=== PATIENT | female | born 1940 | race Caucasian/White ===

== ENCOUNTER → 2016-05-15 | Outpatient (CLI) | payer OTHER, MEDICAID ==
[~2016-05-15] MED LIST: B-12500 MCG PO; CARDIZEM CD240 MG PO; CIPROFLOXACIN500 MG PO; CRESTOR20 MG PO; FLOMAX0.4 MG PO; FUROSEMIDE40 MG PO; GLYBURIDE5 MG PO; HYDROCODONE BIT1 T11 PO; JANUVIA50 MG PO; LANTUS100 U/ML SC; LISINOPRIL10 MG PO; LORAZEPAM0.5 MG PO; MAPAP325 MG PO; METFORMIN HYD1000 MG PO; METOPROLOL50 MG PO; MIRALAX17 GM/DOSE PO; PERCOCET 325 MG1 TA2 PO; PROTONIX TR40 MG PO; VITAMIN D2000 IU PO; VITAMIN D31000 IU PO; ZESTRIL,PRINIVI10 MG PO; Zofran4 MG PO
[2016-05-15 11:01] LABS: BASO # 0.1 10*3/uL (0.0-0.1); EOS # 0.3 10*3/uL (0.0-0.4); EOS % 3.4 % (1.0-4.0); HEMATOCRIT 38.8 % (37.0-47.0); HEMOGLOBIN 12.7 g/dl (12.0-16.0); LYMPH # 2.6 10*3/uL (1.3-4.4); LYMPH % 33.9 % (27.0-41.0); MEAN CELL VOLUME 91.5 fl (81.0-99.0); MEAN CORPUSCULAR HGB CONC 32.7 g/dl (33.0-37.0); MEAN PLATELET VOLUME 10.3 fl (9.6-12.3); MONO # 0.6 10*3/uL (0.1-1.0); MONO % 7.4 % (3.0-9.0); NEUT # 4.2 10*3/uL (2.3-7.9); PLATELET COUNT AUTOMATED 260 10*3/uL (130-400); RED BLOOD COUNT 4.24 10*6/uL (4.10-5.10); RED CELL DISTRI WIDTH 13.1 % (0-14.5); WHITE BLOOD COUNT 7.7 10*3/uL (4.8-10.8)
[2016-05-15 11:09] LABS: ALBUMIN 3.3 gm/dl (3.1-4.5); PHOSPHOROUS 2.7 mg/dL (2.5-4.9); POTASSIUM 3.6 mmol/L (3.5-5.1)
== END | disposition home or self-care (01) ==
LOC: LAB 10:07
PROVIDERS: Internal Medicine
DX: E11.9 Type 2 diabetes mellitus without complications (principal)

== ENCOUNTER 2016-09-06 23:40 | Emergency (ER) | payer OTHER, MEDICAID ==
[~2016-09-06] VITALS: Ht 167.6 cm; Wt 110.2 kg
[2016-09-06] MEDS ORDERED: METOPROLOL TART75 MG PO (23:52)
[2016-09-06] MEDS ORDERED: VICTOZA6 MG/ML SC (23:55)
[2016-09-06] MEDS ORDERED: LEVEMIR10 ML SC (23:56)
[2016-09-06] MEDS ORDERED: NOVOLOG FLEX100 U/ML SC (23:57)
[2016-09-06] MEDS ORDERED: MAGNESIUM OXID400 MG PO (23:58)
[2016-09-07 00:10] VITALS: BP 190/72
[2016-09-07] MEDS ORDERED: NORVASC10 MG PO (00:32)
== END 2016-09-07 03:01 | disposition home or self-care (01) ==
LOC: ED 23:40
DX: I15.9 Secondary hypertension, unspecified (principal); E11.9 Type 2 diabetes mellitus without complications; F41.9 Anxiety disorder, unspecified; I99.8 Other disorder of circulatory system; Z79.899 Other long term (current) drug therapy; Z79.4 Long term (current) use of insulin; Z88.1 Allergy status to other antibiotic agents; Z85.038 Personal history of other malignant neoplasm of large intestine

== ENCOUNTER → 2016-10-23 | Outpatient (CLI) | payer OTHER, MEDICAID ==
[~2016-10-23] MED LIST changes: +LEVEMIR10 ML SC; +MAGNESIUM OXID400 MG PO; +METOPROLOL TART75 MG PO; +NORVASC10 MG PO; +NOVOLOG FLEX100 U/ML SC; +VICTOZA6 MG/ML SC
== END | disposition home or self-care (01) ==
LOC: US 01:56
DX: N28.1 Cyst of kidney, acquired (principal); I10 Essential (primary) hypertension; N28.89 Other specified disorders of kidney and ureter

== ENCOUNTER 2016-12-08 13:54 | Inpatient (IN) | payer OTHER, MEDICAID ==
[~2016-12-08] VITALS: Ht 167.6 cm; Wt 106.6 kg
[~2016-12-08 13:54] MED LIST changes: +LOPRESSOR100 M1 PO; -METOPROLOL TART75 MG PO
[2016-12-08 13:56] VITALS: BP 164/74
[2016-12-08 14:37] LABS: BASO # 0.1 10*3/uL (0.0-0.1); BASO % 0.7 % (0.0-1.0); EOS # 0.2 10*3/uL (0.0-0.4); EOS % 3.1 % (1.0-4.0); HEMATOCRIT 38.2 % (37.0-47.0); HEMOGLOBIN 12.6 g/dl (12.0-16.0); IG # 0.1 10*3/uL (0.0-0.1); LYMPH # 2.3 10*3/uL (1.3-4.4); LYMPH % 32.3 % (27.0-41.0); MEAN CELL VOLUME 91.6 fl (81.0-99.0); MEAN CORPUSCULAR HGB 30.2 pg (27.0-31.0); MEAN PLATELET VOLUME 10.4 fl (9.6-12.3); MONO # 0.8 10*3/uL (0.1-1.0); MONO % 11.4 % (3.0-9.0); NEUT # 3.6 10*3/uL (2.3-7.9); NEUT % 51.8 % (47.0-73.0); PLATELET COUNT AUTOMATED 253 10*3/uL (130-400); RED BLOOD COUNT 4.17 10*6/uL (4.10-5.10); RED CELL DISTRI WIDTH 13.9 % (0-14.5)
[2016-12-08 14:47] LABS: INTERNATIONAL NORM RATIO 1.1 (2.0-3.5); PROTHROMBIN TIME 11.2 SECONDS (9.0-12.4)
[2016-12-08 14:55] LABS: ALBUMIN 3.2 gm/dl (3.1-4.5); BUN 25 mg/dl (7-24); CARBON DIOXIDE 22 mmol/L (21-32); CHLORIDE 107 mmol/L (98-107); GLUCOSE 179 mg/dL (65-99); MAGNESIUM 1.8 mg/dL (1.5-2.1); POTASSIUM 3.4 mmol/L (3.5-5.1); SODIUM 139 mmol/L (136-145)
[2016-12-08 14:59] LABS: ALKALINE PHOSPHATASE 108 U/L (45-117); BILIRUBIN, TOTAL 0.6 mg/dl (0.2-1.0); C-REACTIVE PROTEIN 1.72 MG/DL (0-0.3); CKMB 0.5 ng/ml (0.5-3.6); CPK 81 U/L (26-192); EST GLOM FILT AFRICAN AMERICAN 35 ml/min; SGOT/AST 13 IU/L (3-35); SGPT/ALT 14 U/L (12-78); TROPONIN I < 0.015 ng/ml (<0.045)
[2016-12-08 15:26] LABS: BILIRUBIN NEGATIVE (NEGATIVE); BLOOD TRACE-LYSED (NEGATIVE); CLARITY CLEAR (CLEAR); COLOR YELLOW (YELLOW); GLUCOSE NEGATIVE (NEGATIVE); KETONE TRACE (NEGATIVE); LEUKO ESTERASE NEGATIVE (NEGATIVE); NITRITE NEGATIVE (NEGATIVE); PH 5.5 (5.0-9.0); PROTEIN NEGATIVE (NEGATIVE); SPECIFIC GRAVITY 1.015 (1.005-1.030); UROBILINOGEN 0.2 E.U./dl (0.2-1.0)
[2016-12-08 15:31] LABS: BACTERIA TRACE
[2016-12-08 15:32] LABS: EPITHELIAL CELLS 0-2; URINE REFLEX COMMENT NO (NO); WBC 0-2 wbc/hpf (0-5)
[2016-12-08 16:02] VITALS: BP 156/68
[2016-12-08 17:05] VITALS: BP 134/56
[2016-12-08 17:30] VITALS: BP 146/62
[2016-12-08] MEDS ORDERED: LOSARTAN POTAS100 M1 PO (17:57)
[2016-12-08] MEDS ORDERED: Hydralazine Hyd25 MG PO (17:58)
[2016-12-08] MEDS ORDERED: VITAMIN D31000 IU PO (18:00)
[2016-12-08 20:00] VITALS: BP 136/56
[2016-12-09] VITALS (7 sets, daily range): BP systolic 123–152; BP diastolic 53–70
[2016-12-09 08:37] LABS: POTASSIUM 3.5 mmol/L (3.5-5.1)
[2016-12-09 08:44] LABS: HEMOGLOBIN A1c 7.7 % (4.8-5.6)
[2016-12-09 08:47] LABS: THYROID STIM HORMONE (HS) 0.72 uIU/ml (0.358-4.75)
[2016-12-09 09:42] LABS: FOLIC ACID 16.16 ng/mL (>5.38)
[2016-12-09] MEDS ORDERED: VITAMIN D50000 UNIT PO (15:32)
[2016-12-10] VITALS: BP 123/45
[2016-12-10 06:46] LABS: BASO # 0.1 10*3/uL (0.0-0.1); BASO % 0.8 % (0.0-1.0); EOS # 0.3 10*3/uL (0.0-0.4); EOS % 3.4 % (1.0-4.0); HEMATOCRIT 36.2 % (37.0-47.0); HEMOGLOBIN 11.8 g/dl (12.0-16.0); IG # 0.2 10*3/uL (0.0-0.1); LYMPH # 3.4 10*3/uL (1.3-4.4); LYMPH % 43.2 % (27.0-41.0); MEAN CELL VOLUME 92.8 fl (81.0-99.0); MEAN CORPUSCULAR HGB 30.3 pg (27.0-31.0); MEAN CORPUSCULAR HGB CONC 32.6 g/dl (33.0-37.0); MEAN PLATELET VOLUME 10.2 fl (9.6-12.3); MONO # 0.8 10*3/uL (0.1-1.0); MONO % 9.6 % (3.0-9.0); NEUT # 3.3 10*3/uL (2.3-7.9); NEUT % 41.1 % (47.0-73.0); PLATELET COUNT AUTOMATED 277 10*3/uL (130-400); WHITE BLOOD COUNT 7.9 10*3/uL (4.8-10.8)
[2016-12-10 07:09] LABS: POTASSIUM 3.5 mmol/L (3.5-5.1)
[2016-12-10 08:00] VITALS: BP 126/52
[2016-12-10 12:00] VITALS: BP 124/49
[2016-12-10 16:00] VITALS: BP 129/52
== END 2016-12-10 18:33 | disposition home or self-care (01) | DRG 312 ==
LOC: ED 13:54 → 5E 16:43 → EDHOLD 16:43 → 5E 16:52
PROVIDERS: Emergency Medicine; Internal Medicine
DX: R55 Syncope and collapse (principal); I13.0 Hypertensive heart and chronic kidney disease with heart failure and stage 1 through stage 4 chronic kidney disease, or unspecified chronic kidney disease; I50.32 Chronic diastolic (congestive) heart failure; E11.22 Type 2 diabetes mellitus with diabetic chronic kidney disease; E44.1 Mild protein-calorie malnutrition; F41.9 Anxiety disorder, unspecified; N18.3 Chronic kidney disease, stage 3 (moderate); T88.7XXA Unspecified adverse effect of drug or medicament, initial encounter; R42 Dizziness and giddiness; E11.42 Type 2 diabetes mellitus with diabetic polyneuropathy; E87.6 Hypokalemia; D72.821 Monocytosis (symptomatic); E11.65 Type 2 diabetes mellitus with hyperglycemia; E67.8 Other specified hyperalimentation; E87.8 Other disorders of electrolyte and fluid balance, not elsewhere classified; Z68.37 Body mass index [BMI] 37.0-37.9, adult; Z86.718 Personal history of other venous thrombosis and embolism; Z85.038 Personal history of other malignant neoplasm of large intestine; Z87.442 Personal history of urinary calculi; Z85.828 Personal history of other malignant neoplasm of skin; Z98.51 Tubal ligation status; Z90.710 Acquired absence of both cervix and uterus; Z90.49 Acquired absence of other specified parts of digestive tract; Z88.8 Allergy status to other drugs, medicaments and biological substances; Z82.49 Family history of ischemic heart disease and other diseases of the circulatory system; Z81.8 Family history of other mental and behavioral disorders; Z80.8 Family history of malignant neoplasm of other organs or systems; Z80.6 Family history of leukemia; Z80.3 Family history of malignant neoplasm of breast; Z79.4 Long term (current) use of insulin; Z79.899 Other long term (current) drug therapy

== ENCOUNTER → 2016-12-27 | Outpatient (CLI) | payer OTHER, MEDICAID ==
[~2016-12-27] MED LIST changes: +Hydralazine Hyd25 MG PO; +LOSARTAN POTAS100 M1 PO; +VITAMIN D50000 UNIT PO
== END | disposition home or self-care (01) ==
LOC: MAMMO 02:59
DX: Z12.31 Encounter for screening mammogram for malignant neoplasm of breast (principal)

== ENCOUNTER → 2017-05-04 | Outpatient (CLI) | payer OTHER, MEDICAID ==
[2017-05-04 11:54] LABS: BASO # 0.1 10*3/uL (0.0-0.1); BASO % 1.4 % (0.0-1.0); EOS # 0.2 10*3/uL (0.0-0.4); HEMOGLOBIN 12.6 g/dl (12.0-16.0); LYMPH # 1.5 10*3/uL (1.3-4.4); LYMPH % 24.5 % (27.0-41.0); MEAN CELL VOLUME 89.6 fl (81.0-99.0); MEAN CORPUSCULAR HGB 29.7 pg (27.0-31.0); MEAN CORPUSCULAR HGB CONC 33.2 g/dl (33.0-37.0); MEAN PLATELET VOLUME 10.1 fl (9.6-12.3); MONO # 0.5 10*3/uL (0.1-1.0); MONO % 7.8 % (3.0-9.0); NEUT # 3.7 10*3/uL (2.3-7.9); PLATELET COUNT AUTOMATED 261 10*3/uL (130-400); RED BLOOD COUNT 4.24 10*6/uL (4.10-5.10); WHITE BLOOD COUNT 5.9 10*3/uL (4.8-10.8)
[2017-05-04 11:55] LABS: BILIRUBIN NEGATIVE (NEGATIVE); BLOOD NEGATIVE (NEGATIVE); CLARITY CLEAR (CLEAR); COLOR YELLOW (YELLOW); GLUCOSE NEGATIVE (NEGATIVE); KETONE NEGATIVE (NEGATIVE); LEUKO ESTERASE NEGATIVE (NEGATIVE); NITRITE NEGATIVE (NEGATIVE); SPECIFIC GRAVITY 1.015 (1.005-1.030); UROBILINOGEN 0.2 E.U./dl (0.2-1.0)
[2017-05-04 12:01] LABS: BACTERIA TRACE; EPITHELIAL CELLS 16-20
[2017-05-04 12:07] LABS: ALBUMIN 3.1 gm/dl (3.1-4.5); CREATININE 1.59 mg/dL (0.55-1.02); POTASSIUM 3.4 mmol/L (3.5-5.1)
[2017-05-04 12:08] LABS: PHOSPHOROUS 3.1 mg/dL (2.5-4.9)
== END | disposition home or self-care (01) ==
LOC: LAB 10:54
PROVIDERS: Internal Medicine Nephrology
DX: N18.3 Chronic kidney disease, stage 3 (moderate) (principal)

== ENCOUNTER → 2017-08-28 | Outpatient (CLI) | payer OTHER, MEDICAID ==
[2017-08-28 12:27] LABS: BILIRUBIN NEGATIVE (NEGATIVE); BLOOD NEGATIVE (NEGATIVE); CLARITY CLEAR (CLEAR); COLOR STRAW (YELLOW); GLUCOSE NEGATIVE (NEGATIVE); KETONE NEGATIVE (NEGATIVE); LEUKO ESTERASE NEGATIVE (NEGATIVE); NITRITE NEGATIVE (NEGATIVE); UROBILINOGEN 0.2 E.U./dl (0.2-1.0)
[2017-08-28 12:34] LABS: URINE CREATININE RANDOM 57.6 mg/dL
[2017-08-28 12:36] LABS: BASO # 0.1 10*3/uL (0.0-0.1); BASO % 1.1 % (0.0-1.0); EOS # 0.2 10*3/uL (0.0-0.4); EOS % 3.1 % (1.0-4.0); HEMATOCRIT 39.7 % (37.0-47.0); HEMOGLOBIN 13.1 g/dl (12.0-16.0); LYMPH # 1.8 10*3/uL (1.3-4.4); LYMPH % 24.5 % (27.0-41.0); MEAN CELL VOLUME 90.4 fl (81.0-99.0); MEAN CORPUSCULAR HGB 29.8 pg (27.0-31.0); MEAN PLATELET VOLUME 10.5 fl (9.6-12.3); MONO # 0.6 10*3/uL (0.1-1.0); MONO % 7.5 % (3.0-9.0); NEUT # 4.7 10*3/uL (2.3-7.9); NEUT % 63.3 % (47.0-73.0); PLATELET COUNT AUTOMATED 277 10*3/uL (130-400); RED BLOOD COUNT 4.39 10*6/uL (4.10-5.10); RED CELL DISTRI WIDTH 13.1 % (0-14.5); WHITE BLOOD COUNT 7.5 10*3/uL (4.8-10.8)
[2017-08-28 12:59] LABS: ALBUMIN 3.3 gm/dl (3.1-4.5); CREATININE 1.7 mg/dL (0.55-1.02); PHOSPHOROUS 3.5 mg/dL (2.5-4.9); POTASSIUM 4.1 mmol/L (3.5-5.1)
[2017-08-28 13:05] LABS: BACTERIA TRACE
[2017-08-28 13:21] LABS: PTH INTACT 107.6 pg/mL (14.0-72.0); VITAMIN D, 25-HYDROXY 43.2 ng/mL (30-100)
== END | disposition home or self-care (01) ==
LOC: LAB 11:52
PROVIDERS: Internal Medicine Nephrology
DX: N18.3 Chronic kidney disease, stage 3 (moderate) (principal)

== ENCOUNTER 2018-04-04 01:01 | Inpatient (IN) | payer OTHER, MEDICAID ==
[~2018-04-04] VITALS: Ht 167.6 cm; Wt 122.3 kg
[2018-04-04] VITALS (8 sets, daily range): BP systolic 128–160; BP diastolic 45–72
--- NOTE | ~2018-04-04 | EKG ---
[place], [place] ELECTROCARDIOGRAM REPORT NAME: JULIANNE MCA UNIT #: [id number] ROOM: 510 DOCTOR: EPIPHANY DRAFT REPORT BIRTHDATE: [birth year] [facility] Test Date: 2018-04-04 Test Time: 01:18:15 Pat Name: JULIANNE MAC Department: 5E Room: 510 Gender: F Credit Control Assistant: Shin Whitehead : 1940 Requested By: MAYELIN PADILLA Order Number: [id number] Reading MD: Cory Torres MD Measurements Intervals [place] Rate: 75 P: -10 CO: 193 QRS: -31 QRSD: 103 T: 87 QT: 392 QTc: 438 Interpretive Statements Sinus rhythm Left axis deviation Low voltage, precordial leads Abnormal R-wave progression, late transition Baseline wander in lead(s) V1,V2 Electronically Signed On 04-07-2018 8:30:22 PST by Cory Torres MD CM:EKGRPT:ELECTROCARDIOGRAM REPORT [id number] MAYELIN PADILLA MD EPIPHANY DRAFT REPORT MAYELIN PADILLA MD
[2018-04-04] MEDS ORDERED: AMLODIPINE BESY10 MG PO (01:14)
[2018-04-04] MEDS ORDERED: APRESOLINE25 MG PO (01:14)
[2018-04-04] MEDS ORDERED: COZAAR50 M1 PO (01:14)
[2018-04-04] MEDS ORDERED: KLOR-CON M1010 ME1 PO (01:15)
[2018-04-04] MEDS ORDERED: METOPROLOL SUC100 M2 PO (01:15)
[2018-04-04] MEDS ORDERED: LIPITOR10 MG PO (01:15)
[2018-04-04] MEDS ORDERED: LASIX20 MG PO (01:16)
[2018-04-04] MEDS ORDERED: MAGNESIUM400 MG PO (01:16)
[2018-04-04] MEDS ORDERED: FISH OIL CONC1000 M2 PO (01:16)
[2018-04-04] MEDS ORDERED: VICTOZA 3-PAK6 MG/ML SC (01:17)
[2018-04-04] MEDS ORDERED: VITAMIN B12-FO1 EACH PO (01:17)
[2018-04-04] MEDS ORDERED: VITAMIN D-32000 UNI1 PO (01:17)
[2018-04-04] MEDS ORDERED: LEVEMIR100 UNIT/1 SC ×2 (01:18)
[2018-04-04] MEDS ORDERED: NOVOLOG100 UNIT/1 SQ (01:19)
[2018-04-04 01:28] LABS: BASO # 0.1 10*3/uL (0.0-0.1); BASO % 1.2 % (0.0-1.0); EOS # 0.2 10*3/uL (0.0-0.4); HEMATOCRIT 40.8 % (37.0-47.0); HEMOGLOBIN 13.6 g/dl (12.0-16.0); LYMPH # 3.4 10*3/uL (1.3-4.4); MEAN CELL VOLUME 91.3 fl (81.0-99.0); MEAN CORPUSCULAR HGB 30.4 pg (27.0-31.0); MEAN CORPUSCULAR HGB CONC 33.3 g/dl (33.0-37.0); MEAN PLATELET VOLUME 10.2 fl (9.6-12.3); MONO # 0.8 10*3/uL (0.1-1.0); MONO % 9.4 % (3.0-9.0); NEUT # 4.2 10*3/uL (2.3-7.9); NEUT % 47.9 % (47.0-73.0); PLATELET COUNT AUTOMATED 279 10*3/uL (130-400); RED BLOOD COUNT 4.47 10*6/uL (4.10-5.10); RED CELL DISTRI WIDTH 13.2 % (0-14.5); WHITE BLOOD COUNT 8.6 10*3/uL (4.8-10.8)
[2018-04-04 01:34] LABS: BILIRUBIN NEGATIVE (NEGATIVE); BLOOD NEGATIVE (NEGATIVE); CLARITY CLEAR (CLEAR); COLOR YELLOW (YELLOW); GLUCOSE NEGATIVE (NEGATIVE); KETONE NEGATIVE (NEGATIVE); LEUKO ESTERASE NEGATIVE (NEGATIVE); NITRITE NEGATIVE (NEGATIVE); UROBILINOGEN 0.2 E.U./dl (0.2-1.0)
[2018-04-04 01:39] LABS: ACT PARTIAL THROMBO TIME 21.1 SECONDS (20.8-31.5)
[2018-04-04 01:45] LABS: BACTERIA TRACE
[2018-04-04 02:02] LABS: ALBUMIN 3.1 gm/dl (3.1-4.5); ALKALINE PHOSPHATASE 105 U/L (45-117); BUN 27 mg/dl (7-24); CHLORIDE 104 mmol/L (98-107); CREATININE 1.97 mg/dL (0.55-1.02); LIPASE 394 U/L (73-393); POTASSIUM 3.8 mmol/L (3.5-5.1); SGOT/AST 18 IU/L (3-35); SGPT/ALT 22 U/L (12-78); SODIUM 140 mmol/L (136-145); TOTAL PROTEIN 8.2 gm/dL (6.4-8.2)
[2018-04-04 02:03] LABS: TROPONIN I < 0.015 ng/ml (<0.045)
[2018-04-04 06:47] LABS: ALBUMIN 2.9 gm/dl (3.1-4.5); CREATININE 1.68 mg/dL (0.55-1.02); PHOSPHOROUS 4.3 mg/dL (2.5-4.9); POTASSIUM 4.5 mmol/L (3.5-5.1)
[2018-04-04 06:54] LABS: THYROID STIM HORMONE (HS) 0.838 uIU/ml (0.358-4.75)
[2018-04-05] VITALS: BP 124/43
[2018-04-05 08:00] VITALS: BP 146/60; BP 148/58
[2018-04-05 12:00] VITALS: BP 138/68
== END 2018-04-05 13:07 | disposition home or self-care (01) | DRG 312 ==
LOC: ED 01:01 → 5E 02:54 → EDHOLD 02:54 → 5E 03:14
PROVIDERS: Emergency Medicine Emergency Medical Services; Internal Medicine
DX: R55 Syncope and collapse (principal); E44.0 Moderate protein-calorie malnutrition; I13.0 Hypertensive heart and chronic kidney disease with heart failure and stage 1 through stage 4 chronic kidney disease, or unspecified chronic kidney disease; I50.32 Chronic diastolic (congestive) heart failure; Z68.41 Body mass index [BMI] 40.0-44.9, adult; E86.0 Dehydration; F41.9 Anxiety disorder, unspecified; N18.3 Chronic kidney disease, stage 3 (moderate); E61.1 Iron deficiency; E11.22 Type 2 diabetes mellitus with diabetic chronic kidney disease; E11.65 Type 2 diabetes mellitus with hyperglycemia; E53.8 Deficiency of other specified B group vitamins; E55.9 Vitamin D deficiency, unspecified; E78.5 Hyperlipidemia, unspecified; E83.41 Hypermagnesemia; E66.01 Morbid (severe) obesity due to excess calories; Z85.828 Personal history of other malignant neoplasm of skin; Z85.038 Personal history of other malignant neoplasm of large intestine; Z88.1 Allergy status to other antibiotic agents; Z79.899 Other long term (current) drug therapy; Z86.718 Personal history of other venous thrombosis and embolism; Z90.710 Acquired absence of both cervix and uterus; Z98.51 Tubal ligation status; Z90.49 Acquired absence of other specified parts of digestive tract; Z82.49 Family history of ischemic heart disease and other diseases of the circulatory system; Z80.3 Family history of malignant neoplasm of breast; Z80.6 Family history of leukemia; Z86.711 Personal history of pulmonary embolism; Z92.21 Personal history of antineoplastic chemotherapy; Z79.4 Long term (current) use of insulin

== ENCOUNTER → 2021-09-05 | Outpatient (CLI) | payer OTHER, MEDICAID ==
[~2021-09-05] MED LIST changes: +AMLODIPINE BESY10 MG PO; +APRESOLINE25 MG PO; +COZAAR50 M1 PO; +DECADRON6 M1 PO; +FISH OIL CONC1000 M2 PO; +KLOR-CON M1010 ME1 PO; +LASIX20 MG PO; +LEVEMIR100 UNIT/1 SC; +LIPITOR10 MG PO; +MAGNESIUM400 MG PO; +METOPROLOL SUC100 M2 PO; +NOVOLOG100 UNIT/1 SQ; +VICTOZA 3-PAK6 MG/ML SC; +VISTARIL25 MG PO; +VITAMIN B12-FO1 EACH PO; +VITAMIN D-32000 UNI1 PO
== END | disposition home or self-care (01) ==
LOC: US 01:31
PROVIDERS: ATTEND Physician Assistant
DX: N20.0 Calculus of kidney (principal); K80.20 Calculus of gallbladder without cholecystitis without obstruction; I51.7 Cardiomegaly

== ENCOUNTER → 2021-09-26 | Outpatient (CLI) | payer OTHER, MEDICAID | END | disposition home or self-care (01) | LOC: CT 09-22 11:00 | PROVIDERS: ATTEND Physician Assistant | DX: K80.20 Calculus of gallbladder without cholecystitis without obstruction (principal); N28.9 Disorder of kidney and ureter, unspecified; K76.89 Other specified diseases of liver ==

== ENCOUNTER → 2022-08-03 | Outpatient (CLI) | payer OTHER, MEDICAID | END | disposition home or self-care (01) | LOC: CT 00:43 | PROVIDERS: ATTEND Physician Assistant | DX: K76.0 Fatty (change of) liver, not elsewhere classified (principal); K80.20 Calculus of gallbladder without cholecystitis without obstruction; N26.1 Atrophy of kidney (terminal); K57.30 Diverticulosis of large intestine without perforation or abscess without bleeding; R74.8 Abnormal levels of other serum enzymes; K21.9 Gastro-esophageal reflux disease without esophagitis; N18.30 Chronic kidney disease, stage 3 unspecified ==

== ENCOUNTER 2022-09-17 16:20 | Inpatient (IN) | payer OTHER, MEDICAID ==
[~2022-09-17] VITALS: Ht 167.6 cm; Wt 120.4 kg
[2022-09-17 16:50] VITALS: BP 168/53
[2022-09-17 18:22] LABS: BASO # 0.1 10*3/uL (0.0-0.1); BASO % 1.2 % (0.0-1.0); EOS # 0.3 10*3/uL (0.0-0.4); EOS % 2.8 % (1.0-4.0); HEMATOCRIT 36.7 % (37.0-47.0); LYMPH # 1.2 10*3/uL (1.3-4.4); LYMPH % 13.6 % (27.0-41.0); MEAN CELL VOLUME 91.8 fl (81.0-99.0); MEAN CORPUSCULAR HGB CONC 32.7 g/dl (33.0-37.0); MEAN PLATELET VOLUME 10.2 fl (9.6-12.3); MONO # 0.9 10*3/uL (0.1-1.0); MONO % 10.4 % (3.0-9.0); NEUT # 6.4 10*3/uL (2.3-7.9); NEUT % 71.1 % (47.0-73.0); PLATELET COUNT AUTOMATED 373 10*3/uL (130-400); RED CELL DISTRI WIDTH 13.2 % (0-14.5); WHITE BLOOD COUNT 8.9 10*3/uL (4.8-10.8)
[2022-09-17 18:43] LABS: ALKALINE PHOSPHATASE 120 U/L (46-116); BUN 22 mg/dl (9-23); CHLORIDE 106 mmol/L (98-107); POTASSIUM 3.9 mmol/L (3.4-5.1); TOTAL PROTEIN 7.3 gm/dL (6.0-8.0)
[2022-09-17 18:49] LABS: SGPT/ALT < 7 U/L (10-49)
[2022-09-17 19:12] VITALS: BP 151/83
[2022-09-17 21:50] VITALS: BP 190/77
[2022-09-17] MEDS ORDERED: LOSARTAN POTASS50 M1 PO (22:09)
[2022-09-17] MEDS ORDERED: AMLODIPINE BESY10 MG PO (22:10)
[2022-09-17] MEDS ORDERED: APRESOLINE25 MG PO (22:11)
[2022-09-18] VITALS: BP 190/77
[2022-09-18 06:39] LABS: BASO # 0.1 10*3/uL (0.0-0.1); EOS # 0.3 10*3/uL (0.0-0.4); EOS % 3.6 % (1.0-4.0); LYMPH # 1.5 10*3/uL (1.3-4.4); LYMPH % 18.1 % (27.0-41.0); MEAN CELL VOLUME 91.2 fl (81.0-99.0); MEAN CORPUSCULAR HGB CONC 31.8 g/dl (33.0-37.0); MEAN PLATELET VOLUME 9.9 fl (9.6-12.3); MONO # 0.9 10*3/uL (0.1-1.0); MONO % 10.1 % (3.0-9.0); NEUT # 5.6 10*3/uL (2.3-7.9); NEUT % 66.5 % (47.0-73.0); PLATELET COUNT AUTOMATED 339 10*3/uL (130-400); RED BLOOD COUNT 3.73 10*6/uL (4.10-5.10); RED CELL DISTRI WIDTH 13.2 % (0-14.5); WHITE BLOOD COUNT 8.4 10*3/uL (4.8-10.8)
[2022-09-18 07:37] LABS: ALKALINE PHOSPHATASE 109 U/L (46-116); BUN 24 mg/dl (9-23); CHLORIDE 107 mmol/L (98-107); CHOLESTEROL 213 mg/dL (<200); FREE T4 1.17 ng/dl (0.89-1.76); LDL CHOLESTEROL 132 mg/dL (9-159); POTASSIUM 3.8 mmol/L (3.4-5.1); THYROID STIM HORMONE (HS) 1.562 uIU/ml (0.550-4.780); TOTAL PROTEIN 6.7 gm/dL (6.0-8.0); TRIGLYCERIDES 215 mg/dl (<150)
[2022-09-18 07:39] LABS: SGPT/ALT < 7 U/L (10-49)
[2022-09-18 07:44] VITALS: BP 128/60
[2022-09-18 08:00] VITALS: BP 153/52
[2022-09-18 12:00] VITALS: BP 130/56
[2022-09-18 16:00] VITALS: BP 135/55
[2022-09-18 20:00] VITALS: BP 127/49
[2022-09-19] VITALS: BP 113/43
[2022-09-19 06:54] LABS: BASO # 0.1 10*3/uL (0.0-0.1); BASO % 1.5 % (0.0-1.0); EOS # 0.4 10*3/uL (0.0-0.4); EOS % 5.4 % (1.0-4.0); HEMATOCRIT 34.6 % (37.0-47.0); LYMPH # 2.1 10*3/uL (1.3-4.4); LYMPH % 26.1 % (27.0-41.0); MEAN CORPUSCULAR HGB 29.5 pg (27.0-31.0); MEAN CORPUSCULAR HGB CONC 32.1 g/dl (33.0-37.0); MEAN PLATELET VOLUME 10.3 fl (9.6-12.3); MONO % 11.9 % (3.0-9.0); NEUT # 4.4 10*3/uL (2.3-7.9); NEUT % 54.2 % (47.0-73.0); PLATELET COUNT AUTOMATED 349 10*3/uL (130-400); RED BLOOD COUNT 3.76 10*6/uL (4.10-5.10); RED CELL DISTRI WIDTH 13.4 % (0-14.5); WHITE BLOOD COUNT 8.1 10*3/uL (4.8-10.8)
[2022-09-19 07:22] LABS: POTASSIUM 3.9 mmol/L (3.4-5.1)
[2022-09-19 08:00] VITALS: BP 129/73
[2022-09-19 12:00] VITALS: BP 151/56
[2022-09-19 16:00] VITALS: BP 141/54
[2022-09-19 20:00] VITALS: BP 127/45
[2022-09-20] VITALS: BP 146/54
[2022-09-20 06:19] LABS: BASO # 0.1 10*3/uL (0.0-0.1); BASO % 1.4 % (0.0-1.0); EOS # 0.4 10*3/uL (0.0-0.4); EOS % 4.9 % (1.0-4.0); HEMATOCRIT 35.9 % (37.0-47.0); LYMPH # 2.3 10*3/uL (1.3-4.4); LYMPH % 25.6 % (27.0-41.0); MEAN CELL VOLUME 93.7 fl (81.0-99.0); MEAN CORPUSCULAR HGB 29.2 pg (27.0-31.0); MEAN CORPUSCULAR HGB CONC 31.2 g/dl (33.0-37.0); MEAN PLATELET VOLUME 10.3 fl (9.6-12.3); MONO % 10.9 % (3.0-9.0); NEUT # 4.9 10*3/uL (2.3-7.9); NEUT % 56.2 % (47.0-73.0); PLATELET COUNT AUTOMATED 347 10*3/uL (130-400); RED BLOOD COUNT 3.83 10*6/uL (4.10-5.10); RED CELL DISTRI WIDTH 13.3 % (0-14.5); WHITE BLOOD COUNT 8.8 10*3/uL (4.8-10.8)
[2022-09-20 06:52] LABS: POTASSIUM 4.3 mmol/L (3.4-5.1)
[2022-09-20 08:00] VITALS: BP 126/54
[2022-09-20 12:00] VITALS: BP 137/56
[2022-09-20 16:00] VITALS: BP 125/44
[2022-09-20 20:00] VITALS: BP 144/47
[2022-09-21] VITALS: BP 143/64
[2022-09-21 07:33] LABS: POTASSIUM 4.2 mmol/L (3.4-5.1)
[2022-09-21 08:00] VITALS: BP 144/76
[2022-09-21 12:00] VITALS: BP 152/62
[2022-09-21] MEDS ORDERED: XARELTO1 EACH PO (13:24)
== END 2022-09-21 15:07 | disposition home or self-care (01) | DRG 299 ==
LOC: ED 16:20 → EDHOLD 18:59 → 5E 18:59
PROVIDERS: Family Medicine; Internal Medicine; Student in an Organized Health Care Education/Training Program; ADMIT Internal Medicine; ATTEND Internal Medicine
DX: I82.411 Acute embolism and thrombosis of right femoral vein (principal); I50.33 Acute on chronic diastolic (congestive) heart failure; N17.0 Acute kidney failure with tubular necrosis; I13.0 Hypertensive heart and chronic kidney disease with heart failure and stage 1 through stage 4 chronic kidney disease, or unspecified chronic kidney disease; E44.0 Moderate protein-calorie malnutrition; J98.11 Atelectasis; N18.4 Chronic kidney disease, stage 4 (severe); Z68.41 Body mass index [BMI] 40.0-44.9, adult; E66.01 Morbid (severe) obesity due to excess calories; E78.5 Hyperlipidemia, unspecified; F41.9 Anxiety disorder, unspecified; E11.65 Type 2 diabetes mellitus with hyperglycemia; E11.22 Type 2 diabetes mellitus with diabetic chronic kidney disease; E11.42 Type 2 diabetes mellitus with diabetic polyneuropathy; Z79.4 Long term (current) use of insulin; Z86.711 Personal history of pulmonary embolism; Z88.8 Allergy status to other drugs, medicaments and biological substances; Z79.899 Other long term (current) drug therapy; Z90.49 Acquired absence of other specified parts of digestive tract; Z90.710 Acquired absence of both cervix and uterus; Z98.51 Tubal ligation status; Z82.49 Family history of ischemic heart disease and other diseases of the circulatory system; Z80.3 Family history of malignant neoplasm of breast

== ENCOUNTER 2023-05-19 04:05 | Emergency (ER) | payer OTHER, MEDICAID ==
[~2023-05-19 04:05] MED LIST changes: +AMOX-CLAV 500-1 EACH PO; +B-12500 MC1 PO; +LOSARTAN POTASS50 M1 PO; +METOPROLOL TAR100 M1 PO; +PROTONIX40 MG PO; +VITAMIN D350 MC2 PO; +XARE15TA PO; +XARELTO1 EACH PO
[2023-05-19 04:55] LABS: BASO # 0.1 10*3/uL (0.0-0.1); BASO % 0.6 % (0.0-1.0); EOS # 0.1 10*3/uL (0.0-0.4); EOS % 0.6 % (1.0-4.0); LYMPH # 1.6 10*3/uL (1.3-4.4); LYMPH % 9.2 % (27.0-41.0); MEAN CELL VOLUME 92.6 fl (81.0-99.0); MEAN CORPUSCULAR HGB 29.2 pg (27.0-31.0); MEAN CORPUSCULAR HGB CONC 31.5 g/dl (33.0-37.0); MEAN PLATELET VOLUME 10.1 fl (9.6-12.3); MONO # 1.2 10*3/uL (0.1-1.0); MONO % 7.2 % (3.0-9.0); NEUT # 14.1 10*3/uL (2.3-7.9); PLATELET COUNT AUTOMATED 333 10*3/uL (130-400); RED BLOOD COUNT 3.67 10*6/uL (4.10-5.10); RED CELL DISTRI WIDTH 13.2 % (0-14.5); WHITE BLOOD COUNT 17.2 10*3/uL (4.8-10.8)
[2023-05-19 05:11] LABS: ACT PARTIAL THROMBO TIME 32.8 SECONDS (20.0-32.1)
[2023-05-19 05:22] LABS: ALKALINE PHOSPHATASE 80 U/L (46-116); BUN 17 mg/dl (9-23); CHLORIDE 109 mmol/L (98-107); LIPASE 46 U/L (12-53); POTASSIUM 3.4 mmol/L (3.4-5.1); TOTAL PROTEIN 6.5 gm/dL (6.0-8.0)
[2023-05-19 05:23] LABS: SGPT/ALT < 7 U/L (5-49)
[2023-05-19 08:21] VITALS: BP 112/56
== END 2023-05-19 10:30 | disposition short-term general hospital (02) ==
LOC: ED 04:05
PROVIDERS: Internal Medicine
DX: S37.012A Minor contusion of left kidney, initial encounter (principal); E87.20 Acidosis, unspecified; D72.829 Elevated white blood cell count, unspecified; I11.0 Hypertensive heart disease with heart failure; I50.9 Heart failure, unspecified; E78.5 Hyperlipidemia, unspecified; E11.9 Type 2 diabetes mellitus without complications; Z88.1 Allergy status to other antibiotic agents; Z79.899 Other long term (current) drug therapy; Z79.4 Long term (current) use of insulin; Z98.51 Tubal ligation status; Z90.711 Acquired absence of uterus with remaining cervical stump; Z90.49 Acquired absence of other specified parts of digestive tract; Z86.718 Personal history of other venous thrombosis and embolism; X58.XXXA Exposure to other specified factors, initial encounter; Y93.89 Activity, other specified; Y92.89 Other specified places as the place of occurrence of the external cause; Y99.8 Other external cause status

== ENCOUNTER → 2023-08-07 | Outpatient (CLI) | payer OTHER, MEDICAID | END | disposition home or self-care (01) | LOC: CT 06-20 14:00 | PROVIDERS: ATTEND Physician Assistant | DX: S35.40 Unspecified injury of renal blood vessel (principal); N20.0 Calculus of kidney; K74.60 Unspecified cirrhosis of liver; K80.20 Calculus of gallbladder without cholecystitis without obstruction; I51.7 Cardiomegaly; T14.8XXA Other injury of unspecified body region, initial encounter; X58.XXXA Exposure to other specified factors, initial encounter; Y93.89 Activity, other specified; Y92.89 Other specified places as the place of occurrence of the external cause; Y99.8 Other external cause status ==

== ENCOUNTER 2024-04-17 06:15 | Emergency (ER) | payer OTHER, MEDICAID ==
[~2024-04-17] VITALS: Ht 167.6 cm; Wt 98.4 kg
[2024-04-17] MEDS ORDERED: SODIUM CHLORIDE 0.9% 500 ML IV ONE (06:20)
[2024-04-17] MEDS ORDERED: MORPHINE Sulfate 2 MG/ML SYR IV ONE (06:20)
[2024-04-17] MEDS ORDERED: IOHEXOL 300 MG/ML 100 ML VIAL IV ONE (06:25)
[2024-04-17 06:37] LABS: BASO # 0.1 10*3/uL (0.0-0.1); BASO % 0.8 % (0.0-1.0); EOS % 0.3 % (1.0-4.0); HEMATOCRIT 42.8 % (37.0-47.0); MEAN CELL VOLUME 90.9 fl (81.0-99.0); MEAN CORPUSCULAR HGB 29.5 pg (27.0-31.0); MEAN CORPUSCULAR HGB CONC 32.5 g/dl (33.0-37.0); MEAN PLATELET VOLUME 10.3 fl (9.6-12.3); MONO # 0.5 10*3/uL (0.1-1.0); MONO % 4.2 % (3.0-9.0); NEUT # 11.2 10*3/uL (2.3-7.9); NEUT % 88.2 % (47.0-73.0); PLATELET COUNT AUTOMATED 265 10*3/uL (130-400); RED BLOOD COUNT 4.71 10*6/uL (4.10-5.10); RED CELL DISTRI WIDTH 13.8 % (0-14.5); WHITE BLOOD COUNT 12.7 10*3/uL (4.8-10.8)
[2024-04-17] MEDS ORDERED: IOHEXOL 300 MG/ML 100 ML VIAL ONE (06:43)
[2024-04-17 06:48] LABS: ACT PARTIAL THROMBO TIME 45.7 SECONDS (20.0-32.1)
[2024-04-17 07:18] LABS: POTASSIUM 4.1 mmol/L (3.4-5.1); TOTAL PROTEIN 7.9 gm/dL (6.0-8.0)
[2024-04-17] MEDS ORDERED: LANTUS SOL100 UNIT/1 SC (07:25)
[2024-04-17] MEDS ORDERED: VITAMIN B12500 MC2 PO (07:26)
[2024-04-17] MEDS ORDERED: DAPAGLIFLOZIN10 MG PO (07:26)
[2024-04-17] MEDS ORDERED: TOPROL XL50 M1 PO (07:27)
[2024-04-17] MEDS ORDERED: Coumadin2.5 MG PO (07:27)
[2024-04-17] MEDS ORDERED: VITAMIN D350 MCG PO (07:27)
[2024-04-17] MEDS ORDERED: LISINOPRIL5 MG PO (07:27)
[2024-04-17] MEDS ORDERED: TRULICITY0.75 MG/0. SC (07:28)
[2024-04-17] MEDS ORDERED: Piperacillin Sodium/Tazobact 50 ML IV ONE ×2 (08:30→12:05)
[2024-04-17] MEDS ORDERED: MORPHINE Sulfate 2 MG/ML SYR IV PRN (12:05)
[2024-04-17] MEDS ORDERED: SODIUM CHLORIDE 0.9% 1,000 ML IV ONE ×2 (12:10→18:10)
[2024-04-17] MEDS ORDERED: DEXTROSE 10 % IN WATER 250 ML IV PRN ×2 (13:00→19:25)
[2024-04-17] MEDS ORDERED: PIPERACILLIN SODIUM/TAZOBACTAM 2.25 GM in SODIUM CHLORIDE 0.9% 50 ML IV SCH (16:00)
[2024-04-17] MEDS ORDERED: INSULIN LISPRO 1 UNIT/0.01 ML SQ SCH ×2 (16:30→22:00)
[2024-04-17] MEDS ORDERED: Insulin Glargine, Recombinan 1 UNIT/0.01 ML SC SCH ×2 (20:00→22:00)
[2024-04-17] MEDS ORDERED: METOPROLOL SUCCINATE XR 50 MG TAB PO SCH (22:00)
[2024-04-17] MEDS ORDERED: hydrALAZINE hydrochloride 25 MG TAB PO SCH (22:00)
[2024-04-18 05:20] LABS: POTASSIUM 3.8 mmol/L (3.4-5.1); TOTAL PROTEIN 6.5 gm/dL (6.0-8.0)
[2024-04-18 06:03] LABS: BASO # 0.1 10*3/uL (0.0-0.1); BASO % 1.1 % (0.0-1.0); EOS # 0.2 10*3/uL (0.0-0.4); EOS % 2.5 % (1.0-4.0); HEMATOCRIT 37.8 % (37.0-47.0); MEAN CORPUSCULAR HGB 28.9 pg (27.0-31.0); MEAN CORPUSCULAR HGB CONC 30.7 g/dl (33.0-37.0); MEAN PLATELET VOLUME 10.7 fl (9.6-12.3); MONO # 0.9 10*3/uL (0.1-1.0); MONO % 10.9 % (3.0-9.0); NEUT % 62.8 % (47.0-73.0); PLATELET COUNT AUTOMATED 268 10*3/uL (130-400); RED BLOOD COUNT 4.01 10*6/uL (4.10-5.10); RED CELL DISTRI WIDTH 14.2 % (0-14.5)
[2024-04-18 06:45] LABS: MEAN CELL VOLUME 94.3 fl (81.0-99.0)
[2024-04-18] MEDS ORDERED: amLODIPine besylate 10 MG TAB PO SCH (10:00)
[2024-04-18] MEDS ORDERED: WARFARIN SODIUM 2.5 MG TAB PO SCH (18:00)
[2024-04-18 19:17] VITALS: BP 122/47
== END 2024-04-18 20:01 | disposition short-term general hospital (02) ==
LOC: ED 06:15
PROVIDERS: Internal Medicine; Student in an Organized Health Care Education/Training Program
DX: K80.10 Calculus of gallbladder with chronic cholecystitis without obstruction (principal); K85.90 Acute pancreatitis without necrosis or infection, unspecified; N17.9 Acute kidney failure, unspecified; R11.2 Nausea with vomiting, unspecified; R19.7 Diarrhea, unspecified; E11.9 Type 2 diabetes mellitus without complications; I10 Essential (primary) hypertension; Z88.8 Allergy status to other drugs, medicaments and biological substances; Z90.710 Acquired absence of both cervix and uterus; Z90.49 Acquired absence of other specified parts of digestive tract; Z98.890 Other specified postprocedural states; Z86.718 Personal history of other venous thrombosis and embolism